=== PATIENT | male | born 1960 | race Caucasian/White ===

== ENCOUNTER 2021-08-24 08:37 | Day surgery (SDC) | payer SELFPAY ==
--- NOTE | 2021-07-17 08:37 | NUR ---
PATIENT WAS SCHEDULED FOR COLONOSCOPY ON 07/17/21. PATIENT IS COVID +
[~2021-08-24 08:37] MED LIST: B121000 MC1 PO; COQ-1030 M1 PO; LIPITOR20 MG PO; LISINOP/HCTZ1 TAB PO; MELOXICAM7.5 MG PO; MULTIVITAMIN AD1 TAB PO; VIT C/BIOFLV1000 MG PO
[2021-08-24 11:03] VITALS: BP 139/79
== END 2021-08-24 11:16 | disposition home or self-care (01) | DRG 379 ==
LOC: ENDO 08:37
PROVIDERS: ATTEND Surgery
PROC: 0DJD8ZZ Inspection of Lower Intestinal Tract, Via Natural or Artificial Opening Endoscopic (ICD-10-PCS; principal; 2021-08-24)
DX: K57.31 Diverticulosis of large intestine without perforation or abscess with bleeding (principal); K64.4 Residual hemorrhoidal skin tags; K64.8 Other hemorrhoids; F17.210 Nicotine dependence, cigarettes, uncomplicated